=== PATIENT | male | born 1970 | race Caucasian/White ===

== ENCOUNTER 2022-03-10 01:05 | Day surgery (SDC) | payer OTHER, SELFPAY ==
[2022-02-25 14:49] VITALS: BMI 24.4
--- NOTE | 2022-03-09 19:27 | PM.HPGS ---
History of Present Illness History of Present Illness Consent: Risks, benefits, and alternatives have been discussed and questions answered. Patient agrees to proceed with procedure. Chief complaint: dysphagia Narrative: Enmanuel Loaiza is a 51 year old male with dysphagia for about 2 years. Review of Systems Review of Systems: All systems reviewed & are unremarkable except as noted in HPI and below PMFSH Social History Social History Smoking status: Never smoker Alcohol intake: current Drinks per week: 2 Substance use type: does not use Living arrangements: with family Spiritual care concerns: No Meds Home Medications and Allergies Home Medications Medication Instructions Recorded Confirmed Type No Home Medications 02/25/22 03/10/22 History Allergies Allergy/AdvReac Type Severity Reaction Status Date / Time No Known Allergies Allergy Mild Verified 03/10/22 10:33 Exam Const: General: alert Orientation/consciousness: patient oriented x3 Resp: Auscultation: clear to auscultation bilaterally Cardio: Rhythm: regular rhythm GI: GI Palp: Yes Soft to palpation and No Tenderness to palpation present (GI) Neuro: General: patient oriented x3 Assessment and Plan Assessment and plan (1) Dysphagia: Code(s): R13.10 - Dysphagia, unspecified Status: Acute Assessment and Plan: EGD with possible biopsy or dilatation or cautery.
--- NOTE | 2022-03-10 09:06 | P.PNAN_ITS ---
Anes - Initial Pre Proc Eval Procedure: Operation Date: 03/10/22 11:30 Proposed Procedures p Esophagogastroduodenoscopy EGD - Sergio Wasserman MD Date/Time: 03/10/22 09:06 Surgeon: Sergio Wasserman MD Pre Op Diagnosis: dysphagia Patient Data Age: 51 Gender: M Height: 1.73 m Weight: 72.8 kg Allergies Allergy/AdvReac Type Severity Reaction Status Date / Time No Known Allergies Allergy Mild Verified 03/10/22 10:33 Home Medications Medication Instructions Recorded Confirmed Type No Home Medications 02/25/22 03/10/22 History Patient hx anesthesia problems: none Family hx anesthesia problems: none Results Review: All pre-operative results and documents have been reviewed as part of the pre- operative evaluation. [facility] Social History Social History Smoking status: Never smoker Alcohol intake: current Drinks per week: 2 Substance use type: does not use Living arrangements: with family Spiritual care concerns: No Anes - Eval Final PreProcedure Day of Procedure 03/10/22 09:06 Patient weight: normal Heart: regular rate and rhythm Lungs: clear to auscultation and normal air movement Airway: Mallampati scale class II Neurological: alert and oriented Last oral intake: >/= 8 hours ASA classification: I Emergent: no Anesthetic plan: proceed Anesthesia type and monitoring: general GIVS Results Review: All pre-operative results and documents have been reviewed as part of the pre- operative evaluation. Informed Consent: The patient's anesthetic plan and its attendant risks and benefits were discussed with the patient/family/POA. Questions were solicited and answers provided to the satisfaction of the patient/family/POA.
[2022-03-10 10:28] VITALS: BP 126/79; PULSE 70; RESP 18; TEMP 36.4; O2SAT 98; BMI 24.5
[2022-03-10] MEDS: LACTATED RINGERS 1,000 ML 150 ML IV CONT (10:47)
[2022-03-10] MEDS: BENZOCAINE (*SP) 60 ML SPRAY CAN (HURRICAINE) 1 SPRAY MUCOUS MEM (11:38)
[2022-03-10 11:55] VITALS: BP 101/69; PULSE 67; RESP 20; O2SAT 95
[2022-03-10 12:05] VITALS: BP 98/68; PULSE 62; RESP 19; O2SAT 98
[2022-03-10 12:15] VITALS: BP 104/72; PULSE 56; RESP 17; O2SAT 98
== END 2022-03-10 12:27 | disposition home or self-care (01) ==
PROVIDERS: PCP Internal Medicine; Visit Provider Internal Medicine Gastroenterology
PROC: 0DJ08ZZ Inspection of Upper Intestinal Tract, Via Natural or Artificial Opening Endoscopic (ICD-10-PCS; CPT 43235; principal; 2022-03-10 11:30)
DX: K22.2 Esophageal obstruction (principal)
CPT/HCPCS: 43249; 88305; J2704; J7120

== ENCOUNTER 2024-04-08 08:37 | Day surgery (SDC) | payer OTHER, SELFPAY ==
[2024-02-02 09:29] VITALS: BMI 25.2
[2024-03-21 11:47] VITALS: BMI 25.1
[2024-04-08 10:50] VITALS: BP 126/91; PULSE 75; RESP 18; TEMP 36.9; O2SAT 95
--- NOTE | 2024-04-08 10:51 | WPDANESEPPF ---
Anes - Initial Pre Proc Eval Procedure: Operation Date: 04/08/24 12:00 Proposed Procedures p Screening Colonoscopy - Benedict Garibay MD Date/Time: 04/08/24 10:51 Surgeon: Benedict Garibay MD Pre Op Diagnosis: Neoplasm Screening Patient Data Age: 54 Gender: M Height: 1.73 m Weight: 75 kg Allergies Allergy/AdvReac Type Severity Reaction Status Date / Time No Known Allergies Allergy Mild Verified 03/21/24 11:46 Home Medications ?Medication ?Instructions ?Recorded ?Confirmed ?Type No Home Medications 03/21/24 03/21/24 History Patient hx anesthesia problems: none Family hx anesthesia problems: none Results Review: All pre-operative results and documents have been reviewed as part of the pre-operative evaluation. [facility] Social History Social History Smoking status: Never smoker Alcohol intake: current Drinks per week: 1 Substance use: never Substance use type: does not use Living arrangements: with family Spiritual care concerns: No Anes - Eval Final PreProcedure Day of Procedure 04/08/24 10:51 Patient weight: normal Heart: regular rate and rhythm Lungs: clear to auscultation Airway: Mallampati scale class II Neurological: alert and oriented Last oral intake: >/= 8 hours ASA classification: I Emergent: no Anesthetic plan: proceed Anesthesia type and monitoring: general GIVS and standard monitoring Results Review: All pre-operative results and documents have been reviewed as part of the pre-operative evaluation. Informed Consent: The patient's anesthetic plan and its attendant risks and benefits were discussed with the patient/family/POA. Questions were solicited and answers provided to the satisfaction of the patient/family/POA.
[2024-04-08] MEDS: LACTATED RINGERS 1,000 ML 150 ML IV CONT (11:00)
--- NOTE | 2024-04-08 11:51 | PM.IMHP ---
H&P: HPI History of Present Illness Date/Time: 04/08/24 11:51 Chief Complaint: Screening colonoscopy Narrative: This is the patient's first colonoscopy. There are no GI symptoms and there is no family history of colorectal cancer. Review of Systems Review of Systems: All systems reviewed & are unremarkable except as noted in HPI and below [facility] Social History Social History Smoking status: Never smoker Alcohol intake: current Drinks per week: 1 Substance use: never Substance use type: does not use Living arrangements: with family Spiritual care concerns: No Meds Home Medications and Allergies Home Medications ?Medication ?Instructions ?Recorded ?Confirmed ?Type No Home Medications 03/21/24 04/08/24 History Allergies Allergy/AdvReac Type Severity Reaction Status Date / Time No Known Allergies Allergy Mild Verified 04/08/24 11:04 Vital Signs Vital Signs - 24 hr 04/08/24 10:50 Temperature 98.4 F Pulse Rate 75 Respiratory Rate 18 Blood Pressure 126/91 H Pulse Oximetry 95 Oxygen Delivery Room Air Exam Const: General: cooperative and healthy appearing Resp: Effort & Inspection: normal respiratory effort and able to speak in complete sentences Auscultation: clear to auscultation bilaterally Cardio: Rate: regular rate Rhythm: regular rhythm GI: Inspection: normal to inspection GI Palp: No No hepatosplenomegaly present Auscultation: normal bowel sounds Rectal Exam: deferred Skin: General skin exam: normal color Psych: Appearance: grossly normal Mental Status: mental status grossly normal Assessment and Plan Assessment and plan (1) Encounter for screening colonoscopy: Code(s): Z12.11 - Encounter for screening for malignant neoplasm of colon Status: Acute Assessment and Plan: The patient is deemed a good candidate for the procedure. Consent signed. Will proceed.
[2024-04-08] MEDS: SIMETHICONE ORAL SUSPENSION 20 MG/0.3 ML 30 ML BOTTLE 0.6 ML IRRIGATION (12:03)
[2024-04-08 12:11] VITALS: BP 102/83; PULSE 68; RESP 16; O2SAT 97
[2024-04-08 12:21] VITALS: BP 100/85; PULSE 78; RESP 18; O2SAT 97
[2024-04-08 12:31] VITALS: BP 114/86; PULSE 70; RESP 18; O2SAT 96
--- NOTE | 2024-04-08 12:50 | WPDANESPN ---
Anes - Prog Note Post-Op Date/Time: 04/08/24 12:50 Cardiovascular status: normal Respiratory status: normal Airway patency: baseline Mental status: baseline Post-Op hydration status: normal Vital Signs: Last Vital Signs Temp 36.9 C 04/08/24 10:50 Pulse 70 04/08/24 12:31 Resp 18 04/08/24 12:31 BP 114/86 04/08/24 12:31 Pulse Ox 96 04/08/24 12:31 O2 Del Method Room Air 04/08/24 12:31 Pain Score (VAS): 0/10 I/O: Intake & Output 04/07/24 04/08/24 04/08/24 23:59 07:59 15:59 Intake Total 475 Balance 475 Patient Feedback: Patient satisfied with anesthetic care.
== END 2024-04-08 12:57 ==
PROVIDERS: PCP Internal Medicine; Referring Provider Internal Medicine; Visit Provider Internal Medicine Gastroenterology
PROC: 0DJD8ZZ Inspection of Lower Intestinal Tract, Via Natural or Artificial Opening Endoscopic (ICD-10-PCS; CPT 45378; principal; 2024-04-08 12:00)
DX: Z12.11 Encounter for screening for malignant neoplasm of colon (principal); K57.30 Diverticulosis of large intestine without perforation or abscess without bleeding
CPT/HCPCS: 45378